=== PATIENT | female | born 1940 | race African-American/Black ===

== ENCOUNTER 2022-12-11 14:43 | Emergency (ER) | payer OTHER ==
[~2022-12-11] VITALS: Ht 160 cm; Wt 77.0 kg
[2022-12-11 14:48] VITALS: O2SAT 99
[2022-12-11] MEDS ORDERED: LIPITOR (14:48)
[2022-12-11] MEDS ORDERED: COREG (14:48)
[2022-12-11] MEDS ORDERED: ASPIRIN (14:48)
[2022-12-11] MEDS ORDERED: TYLENOL (14:48)
[2022-12-11] MEDS ORDERED: POTASSIUM (14:48)
[2022-12-11 16:07] LABS: BASOPHILS % 0.2 % (0.0-2.0); EOSINOPHILS % 2.4 % (0.0-5.0); HEMATOCRIT. 37.4 % (36.0-48.0); HEMOGLOBIN. 11.5 g/dL (12.0-16.0); MEAN CORPUSCULAR HEMOGLOBIN 21.6 pg (28.0-32.0); MEAN CORPUSCULAR HGB CONC 30.8 g/dL (31.0-37.0); MEAN PLATELET VOLUME 9.4 fl (7.4-10.4); MONOCYTES % 10.2 % (2.0-8.0); NEUTROPHILS % 61.2 % (40.0-76.0); PLATELET 150 x1000/uL (130-400); RED BLOOD CELL COUNT 5.33 mill/uL (4.2-5.4); RED CELL DISTRIBUTION WIDTH 17.3 % (11.6-14.6); WHITE BLOOD COUNT 5.5 x1000/uL (4.5-11.0)
[2022-12-11 16:09] LABS: ADD RBC MORPHOLOGY YES; DIFFERENTIAL COMMENT 1
[2022-12-11 16:19] LABS: INR 1.1; PROTHROMBIN TIME 11.9 sec (9.6-11.0)
[2022-12-11 16:26] LABS: CHLORIDE 109 mEq/L (98-107); INDEX HEMOLYSI 1 (1-3); INDEX ICTERIC 1 (1-4); INDEX LIPEMIC 1 (1-3); POTASSIUM 3.6 mEq/L (3.5-5.1); SODIUM 140 mEq/L (136-145)
[2022-12-11 16:36] LABS: ALANINE AMINOTRANSFERASE 19 IU/L (13-61); ALBUMIN 3.2 g/dL (3.4-5.0); ASPARTATE AMINOTRANSFERASE 16 IU/L (15-37); BILIRUBIN TOTAL 0.5 mg/dL (0.1-1.0); CALCIUM 9.7 mg/dL (8.5-10.1); CARBON DIOXIDE 26 mEq/L (21-32); CREATININE 1.2 mg/dL (0.6-1.3); GLUCOSE 124 mg/dL (70-105); NT PRO B-TYPE NATRIURETIC PEP 1777 pg/mL (5-125); PROTEIN TOTAL 7.1 g/dL (6.0-8.3); TROPONIN I HIGH SENSITIVITY 35 ng/L (<54); UREA NITROGEN BLOOD 19 mg/dL (7-21)
[2022-12-11 17:03] LABS: CLARITY URINE CLOUDY (CLEAR); COLOR URINE YELLOW (YELLOW); GLUCOSE URINE NEGATIVE (NEGATIVE); KETONES URINE NEGATIVE (NEGATIVE); LEUKOCYTE ESTERASE URINE 2+ (NEGATIVE); NITRITE URINE POSITIVE (NEGATIVE); OCCULT BLOOD URINE NEGATIVE (NEGATIVE); PH URINE 5.5 (4.5-8.0); PROTEIN URINE 1+ (NEGATIVE); SPECIFIC GRAVITY URINE 1.017 (1.005-1.030)
[2022-12-11 17:23] LABS: BACTERIA URINE 4+; RBC URINE 0-2 /hpf (0-2); SQUAMOUS EPITHELIAL CELL URINE 1+ /lpf (RARE/1+)
[2022-12-11] MEDS ORDERED: LEVOFLOXACIN 500MG TABLET PO STA (17:24)
[2022-12-11] MEDS ORDERED: LEVO-65 MT (17:29)
[2022-12-11 17:35] LABS: MICROCYTOSIS 2+; OVALOCYTES 1+; PLATELET ESTIMATE NORMAL
[2022-12-11 17:36] LABS: ANISOCYTOSIS 1+; GIANT PLATELETS FEW
[2022-12-11 17:39] VITALS: BP 121/59; PULSE 82; RESP 20; TEMP 98.6
== END 2022-12-11 18:13 | disposition home or self-care (01) ==
LOC: ER 14:43
DX: E86.0 Dehydration (principal); R55 Syncope and collapse; N30.90 Cystitis, unspecified without hematuria; I48.91 Unspecified atrial fibrillation; E11.9 Type 2 diabetes mellitus without complications; I10 Essential (primary) hypertension; Z86.73 Personal history of transient ischemic attack (TIA), and cerebral infarction without residual deficits; Z88.0 Allergy status to penicillin
CPT/HCPCS: 36415; 71045; 80053; 81003; 83880; 84484; 85025; 93005; 99285